=== PATIENT | male | born 1985 | race Two or more races ===

== ENCOUNTER → 2017-04-03 | Outpatient (CLI) | payer OTHER ==
--- NOTE | 2017-04-04 11:22 | US ---
EXAMINATION TYPE: US abdomen complete DATE OF EXAM: 04/03/2017 COMPARISON: NONE CLINICAL HISTORY: R10.9 Abd Pain. RUQ PAIN EXAM MEASUREMENTS: Liver Length: 17.1 cm Gallbladder Wall: 0.21 cm CBD: 0.46 cm Spleen: 12.8 cm Right Kidney: 10.8 X 4.1 X 4.3 cm Left Kidney: 11.1 X 6.6 X 5.2 cm Pancreas: wnl Liver: wnl Gallbladder: APPEARS WNL ARTIFACT SEEN. Evidence for sonographic Garza's sign: No CBD: wnl Spleen: wnl Right Kidney: wnl Left Kidney: wnl Upper IVC: wnl Abd Aorta: wnl The liver is homogenous. The intrahepatic portion of the IVC and visualized abdominal aorta are with in normal limits. There is no evidence of shadowing mobile cholelithiasis. Common bile duct is unre markable. Pancreas is suboptimally evaluated on images saved as is obscured by overlying bowel gas pe r technologist. The spleen is unremarkable. Kidneys are symmetric and free of hydronephrosis. No r enal lesions are seen. IMPRESSION: No significant finding is seen to account for patient's symptoms.
== END | disposition home or self-care (01) ==
LOC: RADUSWWP 08:55
PROVIDERS: ATTEND Family Medicine
DX: R10.9 Unspecified abdominal pain (principal)
CPT/HCPCS: 76700

== ENCOUNTER 2018-08-20 13:54 | Emergency (ER) | payer OTHER ==
--- NOTE | 2018-08-20 15:22 | XR ---
EXAMINATION TYPE: XR lumbar spine 2 or 3V DATE OF EXAM: 08/20/2018 CLINICAL HISTORY: History of back surgery with low back pain TECHNIQUE: Frontal, lateral, and oblique images of the lumbar spine are obtained. COMPARISON: MRI lumbar spine December 09, 2015 FINDINGS: There are 5 lumbar type vertebral bodies identified. The lumbar spine shows satisfactory alignment without evidence of acute fracture or dislocation. Stable mild disc space narrowing L5-S1 l evel. Vertebral body heights and disk space heights otherwise are within normal limits. The overlying soft tissue appears unremarkable. IMPRESSION: No acute fracture or dislocation is seen in the lumbar spine. No significant change from prior MRI.
--- NOTE | 2018-08-20 16:34 | CT ---
EXAMINATION TYPE: CT lumbar spine wo con DATE OF EXAM: 08/20/2018 COMPARISON: Plain films 08/20/2018, MRI 12/09/2015 HISTORY: Swelling by previous lumbar surgery. CT DLP: 1005.8 mGycm CONTRAST: None TECHNIQUE: CT of the lumbar spine is performed on a spiral scan at 3 mm thick sections. Reconstructed images are performed in the coronal and sagittal planes. FINDINGS: T12-L1: No focal disc herniation or significant disc bulge is evident. No spinal canal stenosis or neural foraminal stenosis is present. L1-L2: No focal disc herniation or significant disc bulge is evident. No spinal canal stenosis or n eural foraminal stenosis is present L2-L3: No focal disc herniation or significant disc bulge is evident. No spinal canal stenosis or n eural foraminal stenosis is present L3-L4: Minimal disc bulging is anterior thecal sac contact. This may be slightly increased from ashkan rison. No spinal canal stenosis or neural foraminal stenosis is present. L4-L5: There is moderate disc bulging greater into the left paracentral region. This has moderate ant erior thecal sac compression. This is an interval change from the comparison. Previous right-sided di sc herniation is not identified. Correlate with the radicular symptoms. Spinal canal narrowing appear s to be present. Ligamentum flavum laxity contributes to the narrowing. L5-S1: Mild disc bulge is present with anterior thecal sac compression. No AP spinal canal stenosis i s present. Mild left and moderate right foraminal narrowing is present. Vertebral alignment appears normal. IMPRESSION: 1. New broad-based left paracentral disc bulging L4-5 with moderate anterior thecal sac compression. This is causing canal narrowing in conjunction with the ligamentum flavum laxity is present. This is a change from the MRI comparison of 12/09/2015. 2. Minimal disc bulging L3-4 may be developing from prior examination.
[2018-08-20] MEDS ORDERED: DEXAMETHASONE SOD PHOSPHATE 10 MG/ML 1 ML VIAL IM STA (17:26)
--- NOTE | 2018-08-20 17:52 | ED ---
General Adult HPI - General Chief complaint: Skin/Abscess/Foreign Body Stated complaint: incision swelling/pain Source: patient, RN notes reviewed, old records reviewed Mode of arrival: ambulatory Limitations: no limitations - History of Present Illness Initial comments: 33-year-old male patient with past medical history of lumbar discectomy presents to ED with back pain. Patient states that the last 2 days he has had new lumbar back pain, which radiates down his right posterior lower extremity. Patient has additionally had some localized paresthesias in the lumbar region. Patient states that when he got out of bed this morning his right leg "gave out on him" and he fell to the side. Patient denies head or neck trauma, and onset back pain or any other injury from fall. Patient afterwards is ambulatory. Patient has additional complaint of some localized swelling at the incision site of lumbar discectomy 3 years prior. Approximately 3 weeks ago he noticed some swelling underneath the incision site, which one week ago became hardened. This area is mildly tender to palpation. Patient denies any discharge or heat from incision site. Patient denies fever chills, IV drug use, loss of bowel or bladder control, saddle anesthesia, new weakness, recent heavy lifting. Patient additionally denies nausea vomiting diarrhea, abdominal pain, chest pain, shortness of breath, changes in vision, headache. Systemic: Pt denies fatigue, myalgia, fever/chills, rash. Pt denies weakness, night sweats, weight loss. Neuro: Pt denies headache, visual disturbances, syncope or pre-syncope. HEENT: Pt denies ocular discharge or irritation, otalgia, rhinorrhea, pharyngitis or notable lymphadenopathy. Cardiopulmonary: Pt denies chest pain, SOB, heart palpitations, dyspnea on exertion. Abdominal/GI: Pt denies abdominal pain, n/v/d. : Pt denies dysuria, burning w/ urination, frequency/urgency. Denies new onset urinary or bowel incontinence. MSK: Pt denies myalgia, loss of strength or function in extremities. - Related Data Home Medications Medication Instructions Recorded Confirmed Ibuprofen [Motrin] 800 mg PO Q8HR PRN 12/08/15 06/06/16 Niacinamide [Niacin] 500 mg PO DAILY 12/09/15 06/06/16 Benazepril HCl [Lotensin] 40 mg PO DAILY 02/08/16 06/06/16 Omeprazole [PriLOSEC] 20 mg PO AC-BRKFST PRN 02/08/16 06/06/16 HYDROcodone/APAP 10-325MG [Seffner 10 mg PO Q6H PRN 06/06/16 06/06/16 10-325] Previous Rx's Medication Instructions Recorded Diazepam [Valium] 5 mg PO TID PRN #90 tab 02/13/16 Allergies Allergy/AdvReac Type Severity Reaction Status Date / Time No Known Allergies Allergy Verified 08/20/18 13:59 Review of Systems ROS Statement: Those systems with pertinent positive or pertinent negative responses have been documented in the HPI. ROS Other: All systems not noted in ROS Statement are negative. Past Medical History Past Medical History: Hypertension Additional Past Medical History / Comment(s): migraines, arthritis History of Any Multi-Drug Resistant Organisms: None Reported Past Surgical History: Back Surgery, Orthopedic Surgery Additional Past Surgical History / Comment(s): laminectomy, NECK 2007 AND 2013, LT KNEE arthroscopy, 02-12-16 revision of lumbar laminectomy. Past Anesthesia/Blood Transfusion Reactions: Previous Problems w/ Anesthesia Additional Past Anesthesia/Blood Transfusion Reaction / Comment(s): post op MIGRAINE Past Psychological History: Anxiety Smoking Status: Current some day smoker Past Alcohol Use History: None Reported Past Drug Use History: None Reported - Past Family History Father Family Medical History: Diabetes Mellitus, Hypertension Additional Family Medical History / Comment(s): BACK PROBLEMS Mother Family Medical History: Diabetes Mellitus, Hypertension General Exam - General Exam Comments Initial Comments: Constitutional: NAD, AOX3, Pt has pleasant affect. HEENT: NC/AT, trachea midline, neck supple, no lymphadenopathy. Posterior pharynx non erythematous, without exudates. External ears appear normal, without discharge. Mucous membranes moist. Eyes PERRLA, EOM intact. There is no scleral icterus. No pallor noted. Cardiopulmonary: RRR, no murmurs, rubs or gallops, no JVD noted. Lungs CTAB in anterior and posterior santana. No peripheral edema. Abdominal exam: Abdomen soft and non-distended. Abdomen non-tender to palpation in all 4 quadrants. Bowel sounds active in LLQ. No hepatosplenomegaly. Neuro: CN II-XII intact. MSK: Midline cervical, thoracic, lumbar spine and paraspinal nontender to palpation, area of edema under incision site approx 2 cm from midline mildly tender to palpation - no erythema, discharge, streaking, fluctuance. Patient lumbar flexion intact. Heel to toe walking intact. Patellar reflexes 2 out of 4, ankle jerk reflex intact. Quadriceps and psoas strength 5 out of 5. Upper and lower extremity sensation intact. Limitations: no limitations Course Vital Signs 08/20/18 08/20/18 08/20/18 13:55 14:24 18:06 Temperature 98.3 F 97.8 F Pulse Rate 97 104 H 99 Respiratory 18 16 18 Rate Blood Pressure 197/102 159/97 168/98 O2 Sat by Pulse 100 99 99 Oximetry Medical Decision Making - Medical Decision Making 33-year-old male patient new onset back pain. Physical exam or do not reveal neurologic deficits, new onset weakness or loss of bowel or bladder control. Area of edema under former incision scar does not appear to be infectious in origin, non-erythematous, non-warm, no fluctuance or discharge. CT of back displayed new broad-based left paracentral disc bulging L4-L5 with moderate anterior thecal sac compression. Contact was made with Dr. Pina orthopedic spine surgeon who performed the patient's previous surgery. Patient is scheduled to see the surgeon tomorrow. Patient administered Decadron shot to decrease inflammation, will defer further treatment to the surgeon tomorrow. Discussed with patient reasons to return to Hospital including new weakness, numbness, saddle anesthesia, loss of bowel or bladder control. Case discussed with Dr. Villeda. Disposition Clinical Impression: Lumbar disc herniation Disposition: HOME SELF-CARE Condition: Good Instructions: Lumbar Radiculopathy (ED) Additional Instructions: Patient to adhere to previously discussed treatment plan and will take medication(s) as directed. Patient to follow up with Dr Ocampo tomorrow and PCP in 1-2 days. Patient to return to ED if symptoms do not improve or new symptoms as previously discussed. Is patient prescribed a controlled substance at d/c from ED?: No Referrals: None,Stated [Primary Care Provider] - 1-2 days Aj Pina, [Doctor of Osteopathic Medicine] - 1-2 days
[2018-08-20 18:07] VITALS: BP 168/98; PULSE 99; RESP 18; TEMP 97.8
== END 2018-08-20 18:06 | disposition home or self-care (01) ==
LOC: EC 13:54
DX: M51.26 Other intervertebral disc displacement, lumbar region (principal); I10 Essential (primary) hypertension; M19.90 Unspecified osteoarthritis, unspecified site; F41.9 Anxiety disorder, unspecified; F17.200 Nicotine dependence, unspecified, uncomplicated; Z98.1 Arthrodesis status; Z98.890 Other specified postprocedural states; Z79.899 Other long term (current) drug therapy
CPT/HCPCS: 72100; 72131; 99284; 96372; J1100

== ENCOUNTER 2018-09-07 00:18 | Emergency (ER) | payer OTHER ==
[2018-09-07 00:25] VITALS: TEMP 97.3
[2018-09-07] MEDS ORDERED: MORPHINE SULFATE 4 MG/ML SYRINGE IVP STA (01:13)
[2018-09-07] MEDS ORDERED: KETOROLAC 30 MG/ML 1 ML VIAL IVP STA (01:13)
[2018-09-07] MEDS ORDERED: ONDANSETRON 4 MG/2 ML VIAL IVP STA (01:13)
[2018-09-07] MEDS ORDERED: DIAZEPAM 5 MG TAB PO STA (01:21)
[2018-09-07] MEDS ORDERED: HYDROmorphone 1 MG/ML 1 ML SYRINGE IVP STA (02:15)
--- NOTE | 2018-09-07 02:52 | ED ---
Back Pain HPI - General Chief Complaint: Back Pain/Injury Stated Complaint: Back Pain Time Seen by Provider: 09/07/18 00:26 Source: patient, EMS Limitations: no limitations - History of Present Illness Initial Comments: 33-year-old male patient presents to the emergency department today for evaluation of increased low back pain. Patient states he does have history of chronic low back pain and has had lumbar fusion in the past. States that over the last 3 days his pain has been worsening. States it is radiating down both legs were worse on the right side. States that the pain is a burning pain that extends from the hip down the right lateral thigh to the feet. He denies any numbness or tingling to the legs. States he did have an episode of urinary incontinence. Denies any bowel incontinence. Denies any saddle anesthesia. He has any fevers or chills. Denies any history of intravenous drug use. Denies any injury to the back. Patient denies any recent rash, shortness breath , chest pain, abdominal pain, nausea, vomiting, diarrhea, constipation, dizziness, weakness, hematuria, dysuria, urinary urgency, urinary frequency, headache, visual changes, or any other complaints. - Related Data Home Medications Medication Instructions Recorded Confirmed Ibuprofen [Motrin] 800 mg PO Q8HR PRN 12/08/15 06/06/16 Niacinamide [Niacin] 500 mg PO DAILY 12/09/15 06/06/16 Benazepril HCl [Lotensin] 40 mg PO DAILY 02/08/16 06/06/16 Omeprazole [PriLOSEC] 20 mg PO AC-BRKFST PRN 02/08/16 06/06/16 HYDROcodone/APAP 10-325MG [Assonet 10 mg PO Q6H PRN 06/06/16 06/06/16 10-325] Previous Rx's Medication Instructions Recorded Diazepam [Valium] 5 mg PO TID PRN #90 tab 02/13/16 Cyclobenzaprine [Flexeril] 10 mg PO TID #15 tab 09/07/18 Hydrocodone/Acetaminophen [Assonet 1 tab PO Q6HR PRN #12 tab 09/07/18 5-325] Ibuprofen [Motrin] 600 mg PO Q8HR PRN #30 tab 09/07/18 Allergies Allergy/AdvReac Type Severity Reaction Status Date / Time No Known Allergies Allergy Verified 08/20/18 13:59 Review of Systems ROS Statement: Those systems with pertinent positive or pertinent negative responses have been documented in the HPI. ROS Other: All systems not noted in ROS Statement are negative. Past Medical History Past Medical History: Hypertension Additional Past Medical History / Comment(s): migraines, arthritis History of Any Multi-Drug Resistant Organisms: None Reported Past Surgical History: Back Surgery, Orthopedic Surgery Additional Past Surgical History / Comment(s): laminectomy, NECK 2007 AND 2013, LT KNEE arthroscopy, -16 revision of lumbar laminectomy. Past Anesthesia/Blood Transfusion Reactions: Previous Problems w/ Anesthesia Additional Past Anesthesia/Blood Transfusion Reaction / Comment(s): post op MIGRAINE Past Psychological History: Anxiety Smoking Status: Current some day smoker Past Alcohol Use History: None Reported Past Drug Use History: None Reported - Past Family History Father Family Medical History: Diabetes Mellitus, Hypertension Additional Family Medical History / Comment(s): BACK PROBLEMS Mother Family Medical History: Diabetes Mellitus, Hypertension General Exam Limitations: no limitations General appearance: alert, in no apparent distress, other (This is a well- developed, well-nourished adult male patient in no acute distress. Vital signs upon presentation are temperature 97.3F, pulse 100, respirations 16, blood pressure 182/106, pulse ox 99% on room air.) Eye exam: Present: normal appearance, PERRL, EOMI. Absent: scleral icterus, conjunctival injection, periorbital swelling ENT exam: Present: normal exam, normal oropharynx, mucous membranes moist Respiratory exam: Present: normal lung sounds bilaterally. Absent: respiratory distress, wheezes, rales, rhonchi, stridor Cardiovascular Exam: Present: regular rate, normal rhythm, normal heart sounds. Absent: systolic murmur, diastolic murmur, rubs, gallop, clicks GI/Abdominal exam: Present: soft, normal bowel sounds. Absent: distended, tenderness, guarding, rebound, rigid Rectal exam: Present: normal inspection, normal rectal tone Extremities exam: Present: normal inspection, full ROM, normal capillary refill , other (Skin to the lower extremities are pink, warm, and dry. Cap refills less than 3 seconds. Post tibial pulses 2+ and equal bilaterally.). Absent: tenderness, pedal edema, joint swelling, calf tenderness Back exam: Present: normal inspection, vertebral tenderness (Mid lumbar vertebral tenderness) Neurological exam: Present: alert, oriented X3, CN II-XII intact Psychiatric exam: Present: normal affect, normal mood Skin exam: Present: warm, dry, intact, normal color. Absent: rash Course Vital Signs 09/07/18 09/07/18 00:22 03:02 Temperature 97.3 F L Pulse Rate 100 71 Respiratory 16 20 Rate Blood Pressure 182/106 139/84 O2 Sat by Pulse 99 97 Oximetry Medical Decision Making - Medical Decision Making 33-year-old male patient presents the emergency department today for complaints of increased low back pain with radiation down his bilateral legs. Physical examination did reveal some tenderness over the lower lumbar spine. Patient had good neurovascular status and good strength to the bilateral lower extremities. Patient was given pain medication here in the emergency department. Patient did report improvement of symptoms. He is able to ambulate. States that the pain is no longer radiating down his legs. He'll be discharged home with medications for pain management. He is instructed to follow-up with his orthopedic supervisory it specialist as soon as possible. States that he will be calling him in the morning. Return parameters were discussed in detail. He verbalizes understanding and agrees with this plan. Disposition Clinical Impression: Acute exacerbation of chronic low back pain, Herniated disc Disposition: HOME SELF-CARE Condition: Good Instructions: Acute Low Back Pain (ED), Chronic Back Pain (ED) Additional Instructions: Apply ice/heat to the low back 20 minutes at a time at least 4 times daily. Take medication as directed. Follow up with your primary care physician or supervisory it specialist for recheck in 1-2 days. Return immediately for any new, worsening, or concerning symptoms. Prescriptions: Cyclobenzaprine [Flexeril] 10 mg PO TID #15 tab Hydrocodone/Acetaminophen [Assonet 5-325] 1 tab PO Q6HR PRN #12 tab PRN Reason: Pain Ibuprofen [Motrin] 600 mg PO Q8HR PRN #30 tab PRN Reason: Pain Is patient prescribed a controlled substance at d/c from ED?: Yes When asked, does pt state using other controlled substances?: No If prescribed controlled substance>3 days was MAPS reviewed?: Prescribed <3 Days If opioid is for acute pain is fill amount 7 days or less?: No If Rx opioid, was Start Talking consent form obtained?: Yes Referrals: Arpit Cruz MD [Primary Care Provider] - 1-2 days Aj Pina DO [Doctor of Osteopathic Medicine] - 1-2 days Time of Disposition: 03:08
[2018-09-07 03:03] VITALS: BP 139/84; PULSE 71; RESP 20
== END 2018-09-07 03:15 | disposition home or self-care (01) ==
LOC: EC 00:18
DX: M51.26 Other intervertebral disc displacement, lumbar region (principal); R32 Unspecified urinary incontinence; I10 Essential (primary) hypertension; F17.200 Nicotine dependence, unspecified, uncomplicated; Z79.899 Other long term (current) drug therapy; Z98.1 Arthrodesis status; Z82.69 Family history of other diseases of the musculoskeletal system and connective tissue
CPT/HCPCS: 99283; 96374; 96375 ×3; J2270; J2405; J1885; J1170

== ENCOUNTER → 2018-09-22 | Outpatient (CLI) | payer OTHER ==
[2018-09-22 20:56] LABS: Blood Urea Nitrogen 23 mg/dL (9-20)
--- NOTE | 2018-09-23 07:24 | MR ---
EXAMINATION TYPE: MR lumbar spine wo/w con DATE OF EXAM: 09/22/2018 COMPARISON: MRI lumbar spine December 09, 2015. CT lumbar spine August 20, 2018. HISTORY: Low back pain, radiculopathy, intervertebral disc displacement, generalized muscle weakness, myofascial strain, status post laminectomy and discectomy L5-S1 level, and restless leg syndrome all per order. Severe pain constant right leg weakness for 3 months with pain into bilateral lower extre mities with history of back surgery 2015 upper patient. TECHNIQUE: Multiplanar, multisequence images of the lumbar spine is performed without and with IV contrast, util izing 10 mL intravenous Gadavist FINDINGS: Sagittal images of the lumbar spine show vertebral body heights and alignment to appear sat isfactory. There is redemonstration of disc desiccation L4-L5 and L5-S1 levels. There is mild disc s pace narrowing L4-L5 level and moderate disc space narrowing L5-S1 level which has progressed from 20 16 MRI. Posterior disc herniations at these levels are redemonstrated on sagittal images. Mild multil evel anterior spurring is seen. Some heterogeneous endplate changes L5-S1 level is now identified. Th e conus medullaris is normal in position ending superior L1 level. No suspicious postcontrast enhance ment is seen. Axial images show the T12-L1 level to appear within normal limits. Axial images at the L1-L2 level show new mild broad disc bulge mildly effacing anterior thecal sac. B ilateral neural foramina are patent. Axial images at L2-L3 and the L3-L4 levels show mild facet degenerative changes bilaterally but spina l canal is preserved and bilateral neural foramina are patent. Axial images at the L4-L5 level show mild to moderate right greater than left facet degenerative dominguez ges bilaterally. There is broad disc bulge with central disc protrusion component effacing anterior t hecal sac on axial image 8. This is more prominent from prior MRI. There is mild to moderate bilatera l anterior inferior neural foraminal narrowing now seen. Axial images at the L5-S1 level show right posterior scar tissue. Right-sided laminectomy defect is s een axial image 1. There is spur disc complex with spinal canal is not effaced. Left-sided neural for joaquim is patent. Right side however shows spur disc complex and scar tissue effacing right lateral re cess axial image 3 encroaching near central right S1 nerve, there is severe right-sided neural forami nal narrowing noted sagittal image 11 due to encroaching scar tissue. IMPRESSION: Laminectomy defect right L5-S1 level redemonstrated. Worsening degenerative change L4-L5 and L5-S1 level noted. Worsening scar tissue causes advanced right-sided neural foraminal narrowing o n current study more prominent versus prior. Effacement of right lateral recess also redemonstrated m ore prominent versus prior. New disc herniation L1-L2 level noted. Further details as discussed above .
== END ==
LOC: RADMRIMAIN 20:27
PROVIDERS: ATTEND Orthopaedic Surgery Orthopaedic Surgery of the Spine
DX: M99.73 Connective tissue and disc stenosis of intervertebral foramina of lumbar region (principal); M51.26 Other intervertebral disc displacement, lumbar region; M47.817 Spondylosis without myelopathy or radiculopathy, lumbosacral region; Z98.890 Other specified postprocedural states
CPT/HCPCS: 82565; 84520; 72158; 36415; A9585

== ENCOUNTER → 2018-10-08 | Outpatient (CLI) | payer OTHER ==
--- NOTE | 2018-10-08 13:46 | XR ---
EXAMINATION TYPE: XR chest 2V DATE OF EXAM: 10/08/2018 COMPARISON: 02/05/2016 HISTORY: Chest pain TECHNIQUE: Frontal and lateral views of the chest are obtained. FINDINGS: There is no focal air space opacity. No evidence for pneumothorax. No pleural effusion. The cardiac silhouette size is within normal limits. The osseous structures are grossly intact. IMPRESSION: 1. No acute cardiopulmonary process.
[2018-10-08 14:18] LABS: Anion Gap 10 mmol/L; Blood Urea Nitrogen 21 mg/dL (9-20); Carbon Dioxide 24 mmol/L (22-30); Chloride 107 mmol/L (98-107); Glucose 118 mg/dL (74-99); Sodium 141 mmol/L (137-145)
[2018-10-08 14:21] LABS: Potassium 4.5 mmol/L (3.5-5.1)
== END | disposition home or self-care (01) ==
LOC: LABPAT 12:25
PROVIDERS: ATTEND Orthopaedic Surgery Orthopaedic Surgery of the Spine
DX: Z01.812 Encounter for preprocedural laboratory examination (principal); Z01.818 Encounter for other preprocedural examination; R07.9 Chest pain, unspecified
CPT/HCPCS: 71046; 80048; 87070; 93005

== ENCOUNTER → 2018-10-15 | Outpatient (CLI) | payer OTHER ==
[2018-10-15 14:38] LABS: Appearance,Urine Clear (Clear); Basophils % (A) 1 %; Bilirubin,Urine Negative (Negative); Blood,Urine Negative (Negative); Color,Urine Yellow; Eosinophils # (A) 0.2 k/uL (0-0.7); Eosinophils % (A) 4 %; Glucose,Urine (UA) Negative (Negative); HCT 41.4 % (39.0-53.0); HGB 13.9 gm/dL (13.0-17.5); Ketones,Urine Negative (Negative); Leukocyte Esterase,Urine Negative (Negative); Lymphocytes # (A) 1.5 k/uL (1.0-4.8); Lymphocytes % (A) 29 %; MCH 28.4 pg (25.0-35.0); MCHC 33.5 g/dL (31.0-37.0); MCV 84.6 fL (80.0-100.0); Mean Platelet Volume 6.2; Monocytes # (A) 0.2 k/uL (0-1.0); Monocytes % (A) 4 %; Neutrophils # (A) 3.2 k/uL (1.3-7.7); Neutrophils % (A) 61 %; Nitrite,Urine Negative (Negative); PH, Urine 5.5 (5.0-8.0); Platelet Count 252 k/uL (150-450); Protein,Urine Negative (Negative); RBC 4.89 m/uL (4.30-5.90); RDW 15.5 % (11.5-15.5); Urobilinogen,Urine <2.0 mg/dL (<2.0); WBC 5.3 k/uL (3.8-10.6)
[2018-10-15 14:46] LABS: INR 0.9 (<1.2); Partial Thromboplastin Time 28.2 sec (22.0-30.0); Prothrombin Time 9.7 sec (9.0-12.0)
== END | disposition home or self-care (01) ==
LOC: LABPAT 14:07
PROVIDERS: ATTEND Orthopaedic Surgery Orthopaedic Surgery of the Spine
DX: Z01.818 Encounter for other preprocedural examination (principal); M48.07 Spinal stenosis, lumbosacral region
CPT/HCPCS: 81003; 85025; 85610; 85730

== ENCOUNTER 2018-10-26 10:11 | Inpatient (IN) | payer OTHER ==
[2018-10-19 18:33] VITALS: BMI 33.0
[~2018-10-26 10:11] MED LIST: BACITRACIN 50,000 UNIT, POLYMYXIN B 500,000 UNIT in SODIUM CHLORIDE 0.9% IRRIGATIO 1,00... IRRIGATION ONE; DEXAMETHASONE SOD PHOSPHATE 10 MG/ML 1 ML VIAL IV ONE; LACTATED RINGERS 1,000 ML IV SCH; LIDOCAINE 1% 20 ML VIAL (10MG/ML) FOR IV START INTRADERMA PRN; ONDANSETRON 4 MG/2 ML VIAL IVP ONE; SCOPOLAMINE 1.5MG/72HR PATCH TRANSDERM ONE; VANCOMYCIN 1,500 MG in SODIUM CHLORIDE 0.9% 250 ML IVPB ONE
[2018-10-26] MEDS ORDERED: VECURONIUM 10 MG VIAL IV ONE (12:26)
[2018-10-26] MEDS ORDERED: GLYCOPYRROLATE 0.2 MG/ML 2 ML VIAL ONE (12:26)
[2018-10-26] MEDS ORDERED: LACTATED RINGERS 1,000 ML BAG IV ONE (12:26)
[2018-10-26] MEDS ORDERED: PROPOFOL 10 MG/ML 20 ML VIAL IV ONE (12:26)
[2018-10-26] MEDS ORDERED: fentaNYL (PF) 50 MCG/ML 2 ML AMP ONE (12:26)
[2018-10-26] MEDS ORDERED: HEPARIN SODIUM,PORCINE 10,000 UNIT/ML 1 ML VIAL ONE (12:26)
[2018-10-26] MEDS ORDERED: NEOSTIGMINE 1 MG/ML 10 ML VIAL ONE (12:26)
[2018-10-26] MEDS ORDERED: LIDOCAINE 1% INJ 10MG/ML (20 ML MDV) ONE (12:26)
[2018-10-26] MEDS ORDERED: MIDAZOLAM 2 MG/2 ML VIAL ONE (12:26)
[2018-10-26] MEDS ORDERED: SUCCINYLCHOLINE CHLORIDE 100 MG/5 ML SYR IV ONE (12:26)
[2018-10-26] MEDS ORDERED: HYDROmorphone (PF) 1 MG/ML ONE (12:26)
[2018-10-26] MEDS ORDERED: BUPIVACAINE-EPI 0.5%-1:200,000 10 ML VIAL SQ ONE (13:25)
[2018-10-26] MEDS ORDERED: THROMBIN (BOVINE) 5,000 UNIT VIAL TOPICAL ONE (13:25)
[2018-10-26] MEDS ORDERED: LACTATED RINGERS 1,000 ML IV ONE (14:33)
[2018-10-26] MEDS ORDERED: BENZOCAINE/MENTHOL LOZENG 1 EACH LOZENGE MUCOUS MEM PRN (16:35)
[2018-10-26] MEDS ORDERED: HYDROcodone/APAP 5-325MG 1 EACH TAB PO PRN (16:35)
[2018-10-26] MEDS ORDERED: MAGNESIUM HYDROXIDE 2,400 MG/10 ML CUP PO PRN (16:35)
[2018-10-26] MEDS ORDERED: ONDANSETRON 4 MG/2 ML VIAL IVP PRN (16:35)
[2018-10-26] MEDS ORDERED: HYDROmorphone 0.5 MG/0.5 ML SYRINGE IVP PRN (16:35)
[2018-10-26] MEDS ORDERED: PANTOPRAZOLE 40 MG TABLET PO PRN (16:38)
[2018-10-26] MEDS ORDERED: hydrOXYzine HCL 25 MG TAB PO PRN (16:38)
--- NOTE | 2018-10-26 16:46 | P.OP ---
Date of Procedure: 10/26/18 Preoperative Diagnosis: Recurrent stenosis L5-S1 with recurrent disc herniation Disc herniation L4 5 with stenosis Degenerative disc disease Low back pain Lower extremity radiculopathy with weakness Postoperative Diagnosis: Same Anesthesia: GETA Pathology: none sent Condition: stable Disposition: PACU Description of Procedure: DESCRIPTION OF PROCEDURE(S): BRIEF OPERATIVE NOTE Preoperative Diagnosis: Recurrent stenosis L5-S1 with recurrent disc herniation Disc herniation L4 5 with stenosis Degenerative disc disease Low back pain Lower extremity radiculopathy with weakness Postoperative Diagnosis: Same Procedure: Revision Laminectomy and decompression L5-S1 Laminectomy and decompression L4 5 Minimally invasive Posterior lateral decompression and fusion L4 5 L5-S1 Minimally invasive Transforaminal lumbar interbody fusion for a 360 fusion L4 5 L5-S1 Discectomy for decompression L4 5 L5-S1 Placement of interbody graft L4 5 L5-S1 Local autogenous bone grafting Use of Cell Saver Harvesting of bone marrow aspirate via the pedicle and vertebral body of L4 Use of bone graft extenders Surgeon: Dr. Pina Fine Arts Teacher: Freddy Chavira is present throughout the entire the case persistence during positioning, dissection, exposure, visualization, and all crucial elements of the case as well as closure. Anesthesia: General anesthesia Estimated blood loss: Approximately 500 mL with 217 given back through Cell Saver Complications: None apparent Components implanted: K2M invasive breast pedicle screw system with use of 6 screws 2 rods one [place] cage and 1 [place] expandable cage with 1 osteoamp sponge and 15 mL of DBX bone matrix to supplemental local autogenous bone graft and bone marrow aspirate Disposition: To recovery room in good stable condition. OPERATIVE INDICATIONS The patient has had long-standing issues in their lower back and lower extremities. He had had disc herniations at his lumbar spine in the past and underwent decompression and discectomy at L5-S1 in the past with some relief of his lower extremity symptoms. He initially had some improvement but then had recurrence of his pain in his back and his lower extremities. He had worsening of his disc herniation at L4 5 and had recurrent disc herniation at L5-S1 which correlated with his back and lower extremity symptoms. He is having extreme debilitating pain and was unable to significant activity due to his symptoms. His imaging correlated with his symptoms as well. He is not having any prolonged benefit despite aggressive conservative care. The patient has been through conservative treatment. We discussed various treatment options including surgery, and the patient wishes to proceed with surgery We discussed the risk, patient's alternatives and benefits of surgery including but not limited to, risk of bleeding risk of infection, risk of need for further surgery , risk of decreased, loss of motion, muscle function, malunion nonunion, hardware failure, nerve damage, paralysis, heart attack, blindness and . OPERATIVE SUMMARY After discussing all the risks, patient alternatives and benefits at length, the patient elected to proceed with surgical intervention, signed informed consent, and presented for their procedure. The patient was seen and examined in the preoperative holding area and the surgical site was marked. The patient was given antibiotics and brought to the operating room. The patient was sedated and intubated by anesthesia in standard fashion. The patient was positioned on to the operating room table in a prone position on the appropriate frame which was well-padded and well molded. We were careful to pad any bony prominences and pressure points. We were careful to maintain the patient's cervical spine and good neutral alignment and position throughout. The patient was prepped and draped in a normal standard fashion. An appropriate timeout and keystone protocol performed. We were able to proceed with the surgery. The local wound area was infiltrated with local anesthetic. I was able utilize C-arm guidance to establish appropriate position over the pedicles bilaterally at the appropriate levels at L4 5 and S1. With the appropriate levels confirmed was able to make small stab incisions over the appropriate pedicle sites bilaterally. Utilizing C-arm in his house able to establish a Jamshidi needle over the lateral aspect of the pedicle and advanced the trocar into the pedicle being careful not to breech superiorly inferiorly medially or laterally. Position was confirmed regularly with AP and lateral images on C-arm. I was able to establish the trocar into the pedicle appropriately into the posterior aspect of the vertebral body bilaterally at the appropriate levels. This was done at each of the pedicle positions and each of the vertebrae. At L4 on the right I was able to take bone marrow aspirate through the trocar was established at the pedicle and vertebral body. We aspirated approximately 20 mL of bone marrow aspirate to be used later in the case for autograft. I was able place the guidewire into the trocar and into the vertebral body appropriately under C-arm guidance. Dissection was taken down over the wire to the appropriate starting position for the screw placed. The appropriate length screw was chosen, threaded over the guidewire and screwed appropriately into the pedicle and vertebral body under C-arm guidance in excellent alignment and position with good bony purchase. This is done at each of the screw sites at the appropriate levels at L4 5 and S1 bilaterally. With the screws intact I extended the incision to connect the screw hole sites on the most symptomatic side on the right. I dissected down to establish access over the pars and lamina to the base of the spinous process. I was able to expose the facet joint. The capsule the facet was taken down and showed some facet arthrosis at the joint. He had had a prior laminectomy and decompression with discectomy at L5-S1 on the right in the past and I had to perform more meticulous technique to enable a revision decompression at that level with revision discectomy. I was able to use a combination of curettes and Kerrison rongeurs and a high-speed drill to take down the facet joint and do a facetectomy. Partial laminectomy was also performed. I was able get excellent foraminal decompression and central decompression with undermining across midline to perform a laminectomy centrally and contralaterally. As able get good central decompression. The ligamentum flavum was taken down to further decompress centrally and at bilateral neural foramen. I was able to expose the disc space and visualize the traversing nerve root. This was done in revision form at L5-S1 and then primary form at L4 5. Note was made of some disc protrusion at the level causing further compression of the nerve root. I was able to establish a annulotomy at the appropriate level protecting soft tissue and neural structures. Note was made of some disc desiccation at the disc. I performed a complete discectomy with accommodation of curettes and rasps and scrapers. I was able get good endplate preparation at the disc space. I sized for the appropriate size interbody spacer protecting the soft tissue and neural structures. The wound was copiously irrigated and suctioned dry. There is no evidence of any dural tear or leak. I was able to pack the disc space with local autogenous bone graft as well as a small amount of bone graft which was also placed into the interbody cage itself. At L5 S1 I used a solid [place] cage and at L4 5 with the increased use an expandable [place] cage. Protecting the soft tissue structures and neural structures I was able place the interbody cage in good alignment and good position with good fit and fill at the interbody space. His issues was confirmed with C-arm guidance. Good hemostasis maintained. There is no evidence of any dural tear or leak. The wound was irrigated and suctioned dry. With the hardware intact, intraoperative C-arm imaging was again taken which showed good alignment and position of the hardware at the appropriate levels at L4 5 and L5-S1 We were then able to measure, contour and place the rods and appropriate hardware bilaterally. I was able to place capcrews, tighten them down, and torque them with the torque screwdriver appropriately. With this intact I was able to place the local autogenous bone graft with additional bone graft enhancer as necessary into the posterior lateral gutters over the decorticated transverse processes. The remainder of the bone graft was placed over the facet joint on the contralateral side after taking down the facet joint capsule. With the bone graft intact, a stable construct, and good decompression at the appropriate levels, we were able to proceed with closure. Good hemostasis was maintained. There is no evidence of dural tear or leak. The fascia was closed for a watertight closure. he subcuticular tissue was closed with absorbable suture. The wound was cleaned and dried and dressed with the appropriate dressing. The drapes were broken down. The patient was gently rolled back onto their hospital bed being careful to maintain their cervical spine and good neutral alignment and position. They were woken up by anesthesia, extubated, and brought to the recovery room in good stable condition. The patient will be admitted to the hospital for appropriate postoperative care , medical management and monitoring. We will continue to follow them closely about the postoperative course.
[2018-10-26] MEDS: HYDROmorphone 0.5 MG/0.5 ML SYRINGE IVP PRN ×4 (17:06→17:30)
[2018-10-26] MEDS: fentaNYL (PF) 50 MCG/ML 2 ML AMP IV ONE ×2 (17:45→18:11)
--- NOTE | 2018-10-26 18:29 | FL ---
EXAMINATION TYPE: FL guidance operating room, XR lumbar spine 2 or 3V DATE OF EXAM: 10/26/2018 COMPARISON: NONE HISTORY: 33-year-old male heart replacement FINDINGS: 5 images during L4-S1 transpedicular screw placement. FLUOROSCOPY Fluoroscopy time of 1 minute 29 seconds was used during lumbar spine hardware placement. 5 image/s d ocument/s the procedure. IMPRESSION: Intraoperative fluoroscopy as above.
[2018-10-26] MEDS: HYDROcodone/APAP 5-325MG 1 EACH TAB PO PRN ×2 (19:52→23:55)
[2018-10-26] MEDS: SODIUM CHLORIDE 0.9% 1,000 ML IV SCH (19:56)
[2018-10-26] MEDS: GABAPENTIN 100 MG CAP PO SCH (21:05)
[2018-10-26] MEDS: BACLOFEN 10 MG TAB PO SCH (21:05)
[2018-10-26] MEDS: HYDROmorphone 1 MG/ML 1 ML SYRINGE IVP PRN (21:47)
[2018-10-27] MEDS: HYDROmorphone 1 MG/ML 1 ML SYRINGE IVP PRN ×8 (02:01→23:44)
[2018-10-27] MEDS ORDERED: DIAZEPAM 5 MG TAB PO PRN (03:36)
[2018-10-27] MEDS ORDERED: HYDROcodone/APAP 10-325MG 1 EACH TAB PO PRN (03:37)
[2018-10-27] MEDS: HYDROcodone/APAP 10-325MG 1 EACH TAB PO PRN ×6 (03:51→23:46)
[2018-10-27] MEDS: SODIUM CHLORIDE 0.9% 1,000 ML IV SCH ×3 (05:51→20:38)
[2018-10-27 07:44] LABS: Basophils % (A) 0 %; Eosinophils # (A) 0.1 k/uL (0-0.7); Eosinophils % (A) 1 %; HCT 36.2 % (39.0-53.0); HGB 11.8 gm/dL (13.0-17.5); Lymphocytes # (A) 1.4 k/uL (1.0-4.8); Lymphocytes % (A) 14 %; MCH 27.6 pg (25.0-35.0); MCHC 32.7 g/dL (31.0-37.0); MCV 84.5 fL (80.0-100.0); Mean Platelet Volume 6.1; Monocytes # (A) 0.6 k/uL (0-1.0); Monocytes % (A) 6 %; Neutrophils # (A) 7.5 k/uL (1.3-7.7); Neutrophils % (A) 78 %; Platelet Count 219 k/uL (150-450); RBC 4.28 m/uL (4.30-5.90); RDW 14.7 % (11.5-15.5); WBC 9.7 k/uL (3.8-10.6)
[2018-10-27] MEDS: DULoxetine HCL 30 MG CAPSULE.DR PO SCH (07:46)
[2018-10-27] MEDS: GABAPENTIN 100 MG CAP PO SCH ×3 (07:46→22:26)
[2018-10-27] MEDS: NADOLOL 20 MG TAB PO SCH (07:46)
[2018-10-27] MEDS: BACLOFEN 10 MG TAB PO SCH (07:46)
[2018-10-27] MEDS: SENNOSIDES-DOCUSATE SODIUM 1 EACH TAB PO SCH (07:46)
[2018-10-27 08:16] LABS: Anion Gap 5 mmol/L; Blood Urea Nitrogen 14 mg/dL (9-20); Calcium 8.6 mg/dL (8.4-10.2); Carbon Dioxide 29 mmol/L (22-30); Chloride 104 mmol/L (98-107); Glucose 100 mg/dL (74-99); Potassium 3.9 mmol/L (3.5-5.1); Sodium 138 mmol/L (137-145)
--- NOTE | 2018-10-27 08:40 | P.PN ---
Progress Note - Text Progress Note Date: 10/27/18 Orthopedic Spine Patient is a pleasant 33-year-old male who is seen and examined at the bedside following posterior lateral decompression and fusion performed yesterday. Patient states he is having significant pain at his lumbar spine postsurgically. He has been able to transfer to a bedside chair beside significant difficulty due to his pain. He does not feel his pain is been adequately controlled. He states he's having significant spasms of the lumbar spine. He is not currently experiencing any significant lower extremity radiculopathy or weakness bilaterally. He has no complaints in regards to his legs. He has not been able to mobilize to the bathroom. His Huerta catheter remains intact. Currently does not complain of nausea, vomiting, fever, or chills. Patient is eating without difficulty. Physical Exam Lumbar Fusion: Status post surgical day number 1 Patient is awake, alert, and oriented 3 Vital signs stable Good chest excursion with deep inspiration and expiration Abdomen soft nontender Dorsiflexion, plantarflexion, and extensor hallucis longus positive sustained bilaterally No signs or symptoms of DVT; no calf pain; pneumatic cuffs not currently intact bilateral lower extremities Dressing over the lumbar spine intact with some blood on the dressing; no erythema, purulence, or signs of infection Some pain with palpation around the surgical sites Neurovascularly intact bilaterally lower extremities Assessment: L4-5 and L5-S1 minimally invasive posterior lateral decompression and fusion with transforaminal lumbar interbody fusion L5-S1 revision laminectomy and decompression Significant low back pain and lumbar spasm History of heart disease History of hypertension Plan: 1. Ambulate as tolerated; work with Physical Therapy to increase mobilization 2. Continue pain control with IV and oral medications; medications have been adjusted and patient may continue to receive Alpine 10 mg #25 mg 1-2 tabs every 4 hours as needed for pain, Dilaudid IV 1 mg IV P every 3 hours as needed for pain, and Valium 5 mg 1 tab 3 times a day for muscle spasms 3. Dressing to remain intact with Telfa and Tegaderm; dressing may be removed today and changed with nonstick Telfa and Tegaderm reapplied 4. Medical management can continue to manage patient for patient's other medical issues 5. Discontinue Huerta catheter when patient is able to increase mobilization 6. We will continue to follow the patient closely 7. Patient can follow-up with Freddy Howard PA-C or Dr. Sawyer Pina at [facility] in 2-3 weeks following discharge
[2018-10-27] MEDS: DIAZEPAM 5 MG TAB PO PRN ×2 (09:11→17:25)
[2018-10-27] MEDS ORDERED: HYDROmorphone 0.5 MG/0.5 ML SYRINGE IVP PRN (16:24)
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
[2018-10-28] MEDS: DIAZEPAM 5 MG TAB PO PRN ×3 (01:00→18:00)
[2018-10-28] MEDS: HYDROmorphone 1 MG/ML 1 ML SYRINGE IVP PRN ×5 (03:15→20:19)
[2018-10-28] MEDS: HYDROcodone/APAP 10-325MG 1 EACH TAB PO PRN ×5 (04:36→22:21)
[2018-10-28] MEDS: DULoxetine HCL 30 MG CAPSULE.DR PO SCH (08:14)
[2018-10-28] MEDS: NADOLOL 20 MG TAB PO SCH (08:14)
[2018-10-28] MEDS: SENNOSIDES-DOCUSATE SODIUM 1 EACH TAB PO SCH (08:14)
[2018-10-28] MEDS: GABAPENTIN 100 MG CAP PO SCH ×3 (08:14→22:20)
--- NOTE | 2018-10-28 10:11 | P.PN ---
<Freddy Howard - Last Filed: 10/28/18 10:06> Progress Note - Text Progress Note Date: 10/28/18 Orthopedic Spine: Patient is a pleasant 33-year-old male who is seen and examined at the bedside following posterior lateral decompression and fusion performed Friday. Patient states he is continuing to experience significant pain at his lumbar spine postsurgically but does feel his symptoms haven't had some improvement as compared to yesterday. He has been able to transfer to a bedside chair and states he spent most of the day sitting in a chair yesterday. His pain has been better controlled but continues to be significant. He continues to experience some spasms of the lumbar spine. He is not currently experiencing any significant lower extremity radiculopathy or weakness bilaterally. He has no complaints in regards to his legs. He has been able to mobilize to the bathroom and the Huerta catheter has been discontinued. Currently does not complain of nausea, vomiting, fever, or chills. Patient is eating without difficulty. He has been using his incentive spirometer. Physical Exam Lumbar Fusion: Status post surgical day number 2 Patient is awake, alert, and oriented 3 Vital signs stable Good chest excursion with deep inspiration and expiration Abdomen soft nontender Dorsiflexion, plantarflexion, and extensor hallucis longus positive sustained bilaterally No signs or symptoms of DVT; no calf pain; pneumatic cuffs not currently intact bilateral lower extremities Dressing over the lumbar spine is removed during physical examination Examination of the incision sites show no active drainage, no erythema, no bruising, no purulence, and no sign of infection Some pain with palpation around the surgical sites Neurovascularly intact bilaterally lower extremities Huerta catheter has been discontinued Assessment: L4-5 and L5-S1 minimally invasive posterior lateral decompression and fusion with transforaminal lumbar interbody fusion L5-S1 revision laminectomy and decompression Significant low back pain and lumbar spasm History of heart disease History of hypertension Plan: 1. Ambulate as tolerated; work with Physical Therapy to increase mobilization 2. Continue pain control with IV and oral medications as previously prescribed including [place] 10 mg #25 mg 1-2 tabs every 4 hours as needed for pain, Dilaudid IV 1 mg IV P every 3 hours as needed for pain, and Valium 5 mg 1 tab 3 times a day for muscle spasms 3. Dressing has been removed during physical examination; dressing may be reapplied when patient transfers to a bedside chair with nonstick Telfa and Tegaderm 4. Medical management can continue to manage patient for patient's other medical diagnoses 5. We will continue to follow the patient closely; if patient is able to continue to have improvement of his pain and he is able to wean off of IV pain medication, we will plan for discharge home in the next 1-2 days 6. Patient can follow-up with Freddy Howard PA-C or Dr. Sawyer Pina at [facility] in 2-3 weeks following discharge <Aj Pina - Last Filed: 10/28/18 15:10> Progress Note - Text The patient is seen and examined today at bedside. I agree with the above. I discussed case with Freddy Lam as well. He has been out of bed and he has improved in his pain control. He is voiding freely. He thinks he may be old go home tomorrow or the next day as well as his pain is adequately controlled. His neurovascular status is intact. We will continue to follow them closely.
[2018-10-28] MEDS: SODIUM CHLORIDE 0.9% 1,000 ML IV SCH ×2 (10:29→11:40)
--- NOTE | 2018-10-28 11:21 | P.PN ---
Subjective this is a pleasant 33 yo M with pmh of GERD, hypertension , osteoarthritis, , migrain . pt has history of chronic low back pain, status post spinal fusion . pt has recent visit to emergency room for acute on chronic low dilcia k pain radiating down his legs that was relieved with pain medication.he was diagnosed with recurrent L4-5 stenosis secondary to disc herniation. he is status post posterior lateral decompression and fusion. today is post op #1. pt has significant pain in the lower back at surgery side. has solomon catheter is in place . pt was asking for more pain medication which was provided.pt denies weakness in the lower extremity. solomon catheter is in place already. pt denies chest pain , no dyspnea , no abdominal pain or nausea or vomiting. vitals are stable . labs reviewed and were unremarkable . his pain and vallium medication were increased today . he is on normal saline at 75 ml/hr. he is on bowel regimen. 10/28/2018 Patient was lying in bed in mild distress due to pain, his pain looks better controlled than yesterday however he still have some pain and needing pain medication. No weakness in his lower extremity. No chest pain, dyspnea or abdominal pain. No nausea vomiting. Solomon catheter still in place. Labs reviewed from yesterday which were unremarkable CBC and BMP except for mildly anemic at 11.8 hemoglobin. I agree with physical therapy evaluation as per primary team Objective - Vital Signs Vital signs: Vital Signs Temp 98.2 F 10/28/18 05:00 Pulse 90 10/28/18 05:00 Resp 16 10/28/18 05:00 BP 126/76 10/28/18 05:00 Pulse Ox 100 10/28/18 05:00 Intake & Output 10/27/18 10/28/18 10/28/18 18:59 06:59 18:59 Intake Total 330 1610 Output Total 900 1350 Balance -570 260 Weight 107.501 kg Intake: Intake, IV Titration 330 300 Amount Sodium Chloride 0.9% 1, 280 300 000 ml @ 75 mls/hr IV . [id number] [facility] Rx#:[id number] ceFAZolin 3 gm In Sodium 50 Chloride 0.9% 50 ml @ 100 mls/hr IVPB Q8HR [facility] Rx# :[id number] Oral 1310 Output: Urine 900 1350 Uretheral (Solomon) 900 Other: Voiding Method Indwelling Catheter Toilet Toilet Urinal Urinal # Voids 2 - Exam GENERAL: The patient is alert and oriented x3, not in any acute distress. Well developed, well nourished. HEENT: Pupils are round and equally reacting to light. EOMI. No scleral icterus. No conjunctival pallor. Normocephalic, atraumatic. No pharyngeal erythema. No thyromegaly. CARDIOVASCULAR: S1 and S2 present. No murmurs, rubs, or gallops. PULMONARY: Chest is clear to auscultation, no wheezing or crackles. ABDOMEN: Soft, nontender, nondistended, normoactive bowel sounds. No palpable organomegaly. MUSCULOSKELETAL: No joint swelling or deformity. EXTREMITIES: No cyanosis, clubbing, or pedal edema. lower back wound is with dressing, and it is detailed exam is deferred to orthopedic team NEUROLOGICAL: Gross neurological examination did not reveal any focal deficits. SKIN: No rashes. - Labs CBC & Chem 7: 10/27/18 07:03 10/27/18 07:03 Assessment and Plan Assessment: recurrent L4-5 stenosis secondary to disc herniation. s/p posterior lateral decompression and fusion. history of hypertension BP is controlled with medication history of GERD history of osteoarthritis history of migraine Plan: this is a pleasant 33 m who presents with L4-5 stenosis , s/p decompression and fusion surgery. pt pain looks uncontrolled well , however his pain medication and valium were just increased. pain management as per primary team. r. Labs and medication were reviewed.. Continue same treatment. Continue with symptomatic treatment. Resume home medication. Monitor lytes and vitals. DVT and GI prophylaxis. Further recommendations of the clinical course of the patient DVT prophylaxis: as per primary team given h/o recent back surgery GI Prophylaxis: Protonix physical therapy evaluation and treatment prognosis is guarded thank you for cosulting us, please feel free to contact us for any further questioning or clarification
[2018-10-29] MEDS: HYDROmorphone 1 MG/ML 1 ML SYRINGE IVP PRN ×3 (00:03→09:18)
[2018-10-29] MEDS: HYDROcodone/APAP 10-325MG 1 EACH TAB PO PRN ×4 (02:15→15:15)
[2018-10-29] MEDS: DIAZEPAM 5 MG TAB PO PRN ×2 (02:16→08:57)
[2018-10-29 06:46] VITALS: RESP 16
[2018-10-29] MEDS: SENNOSIDES-DOCUSATE SODIUM 1 EACH TAB PO SCH (08:54)
[2018-10-29] MEDS: GABAPENTIN 100 MG CAP PO SCH (08:54)
[2018-10-29] MEDS: NADOLOL 20 MG TAB PO SCH (08:54)
[2018-10-29] MEDS: DULoxetine HCL 30 MG CAPSULE.DR PO SCH (08:54)
[2018-10-29] MEDS: SODIUM CHLORIDE 0.9% 1,000 ML IV SCH (08:58)
--- NOTE | 2018-10-29 10:32 | P.DS ---
Providers Date of admission: 10/26/18 10:11 Attending physician: Aj Pina Consults: 10/26/18 16:35 Consult Physician Routine Consulting Provider: Honorio Perez Reason/Comments: Medical management Do you want consulting provider notified?: Yes Primary care physician: Stated None Hospital Course: The patient presented on the day of admission as per their operative note. He underwent minimally invasive decompression and fusion at L4 5 and L5-S1 for his spinal stenosis with recurrent herniation degenerative disc disease and lower extremity radiculopathy. He had a great deal of pain on his first postoperative day but he has been making good improvement over the next days. Today he feels like to turn the corner and is moving around significant way better. He is requiring very little IV pain medication and has been converting or over to oral medications adequately. He feels his lower extremities have made good improvement with his surgery Physical Exam The incision site is clean dry and intact. There is no erythema no drainage. There is no purulence no evidence of infection. His back is clear Abdomen soft and nontender. Chest has good excursion with deep inspiration and expiration. The patient has active and passive range of motion intact at the upper and lower extremities. There is no acute change in neurologic status. He has sustained dorsal to plantar flexion and EHL intact Hospital Course Postoperative day #3 status post minimally invasive decompression and fusion at L4 5 and L5-S1 for recurrence stenosis with stenosis L4 5 L5-S1 degenerative disc disease low back pain and lower extremity radiculopathy . The patient has been making good progress postoperatively. They have completed the prophylactic antibiotics without any signs or symptoms of infection. The patient has been able to advance their diet, and is tolerating diet adequately. The pain was initially controlled with IV medications and is now controlled appropriately with oral medications. The patient has been able to increase their mobilization. He feels he'll be okay for discharge home if he can actively manage his stairs with physical therapy as he does have some stairs at home. The patient has progressed appropriately. I think they are in good stable condition for discharge today if he is okay doing stairs and with his medications of oral pain medication transitioning from the IV.. They will be sent home with appropriate prescriptions. I answered their questions to the best of my ability in a language that they can understand and they are agreeable with the plan. They will follow up as directed in approximately 2 weeks or sooner if he is having any problems. Patient Condition at Discharge: Fair Plan - Discharge Summary Discharge Rx Participant: Yes New Discharge Prescriptions: New Cyclobenzaprine [Flexeril] 10 mg PO TID PRN #90 tab PRN Reason: Spasms Diazepam [Valium] 5 mg PO TID PRN 14 Days #21 tab PRN Reason: Spasms HYDROcodone/APAP 10-325MG [[place] 10-325] 1 tab PO Q4HR PRN 7 Days #42 tab PRN Reason: Pain No Action Omeprazole [PriLOSEC] 20 mg PO AC-BRKFST PRN PRN Reason: Heartburn HYDROcodone/APAP 10-325MG [[place] 10-325] 1 tab PO BID Ibuprofen [Motrin] 600 mg PO Q8HR PRN #30 tab PRN Reason: Pain Gabapentin [Neurontin] 100 mg PO TID Baclofen [Lioresal] 10 mg PO TID Nadolol [Corgard] 20 mg PO DAILY DULoxetine HCL [Cymbalta] 30 mg PO DAILY hydrOXYzine HCL [Atarax] 50 mg PO QID PRN PRN Reason: Anxiety Discharge Medication List Omeprazole [PriLOSEC] 20 mg PO AC-BRKFST PRN 02/08/16 [History] HYDROcodone/APAP 10-325MG [[place] 10-325] 1 tab PO BID 06/06/16 [History] Ibuprofen [Motrin] 600 mg PO Q8HR PRN #30 tab 09/07/18 [Rx] Baclofen [Lioresal] 10 mg PO TID 10/19/18 [History] Gabapentin [Neurontin] 100 mg PO TID 10/19/18 [History] DULoxetine HCL [Cymbalta] 30 mg PO DAILY 10/21/18 [History] Nadolol [Corgard] 20 mg PO DAILY 10/21/18 [History] hydrOXYzine HCL [Atarax] 50 mg PO QID PRN 10/21/18 [History] Cyclobenzaprine [Flexeril] 10 mg PO TID PRN #90 tab 10/29/18 [Rx] Diazepam [Valium] 5 mg PO TID PRN 14 Days #21 tab 10/29/18 [Rx] HYDROcodone/APAP 10-325MG [[place] 10-325] 1 tab PO Q4HR PRN 7 Days #42 tab [Rx] Follow up Appointment(s)/Referral(s): Freddy Howard, LAMIN [PHYSICIAN DATABASE SPECIALIST] - 2 Weeks (Patient may follow-up with Freddy Howard PA-C or Dr. Sawyer Pina at [facility] in 2-3 weeks following discharge. ) Activity/Diet/Wound Care/Special Instructions: 1. Patient may shower with Tegaderm dressing intact. 2. Patient may remove Tegaderm dressing on Friday and shower without a dressing at that time. 3. Patient should keep Steri-Strips intact and allow them to fall off naturally. 4. Patient should refrain from driving until at least after their first follow- up appointment in the office. 5. Patient should avoid excessive bending, twisting, and lifting; no lifting greater than 10 pounds 6. Take medications as prescribed 7. Do not soak in tub Discharge Disposition: HOME SELF-CARE
[2018-10-29 12:38] VITALS: BP 117/76; PULSE 81; TEMP 98.2
--- NOTE | 2018-10-29 18:37 | P.PN ---
Subjective Progress Note Date: 10/29/18 Progress note being dictated for Dr. Santo. Interval history: this is a pleasant 33 yo M with pmh of GERD, hypertension , osteoarthritis, , migrain . pt has history of chronic low back pain, status post spinal fusion . pt has recent visit to emergency room for acute on chronic low dilcia k pain radiating down his legs that was relieved with pain medication.he was diagnosed with recurrent L4-5 stenosis secondary to disc herniation. he is status post posterior lateral decompression and fusion. today is post op #1. pt has significant pain in the lower back at surgery side. has solomon catheter is in place . pt was asking for more pain medication which was provided.pt denies weakness in the lower extremity. solomon catheter is in place already. pt denies chest pain , no dyspnea , no abdominal pain or nausea or vomiting. vitals are stable . labs reviewed and were unremarkable . his pain and vallium medication were increased today . he is on normal saline at 75 ml/ hr. he is on bowel regimen. 10/28/2018 Patient was lying in bed in mild distress due to pain, his pain looks better controlled than yesterday however he still have some pain and needing pain medication. No weakness in his lower extremity. No chest pain, dyspnea or abdominal pain. No nausea vomiting. Solomon catheter still in place. Labs reviewed from yesterday which were unremarkable CBC and BMP except for mildly anemic at 11.8 hemoglobin. I agree with physical therapy evaluation as per primary team. 10/29/2018 ambulating, tolerating exertion well. PT recommending walker at discharge. Pain better controlled now with oral medications. Diet intake improving with no nausea vomiting. Passing flatus. Denies lightheadedness dizziness or focal deficits. Denies chest pain, palpitations or increasing shortness of breath. Afebrile. Objective - Vital Signs Vital signs: Vital Signs Temp 98.2 F 10/29/18 12:38 Pulse 81 10/29/18 12:38 Resp 16 10/29/18 12:38 BP 117/76 10/29/18 12:38 Pulse Ox 99 10/29/18 12:38 Intake & Output 10/28/18 10/29/18 10/29/18 18:59 06:59 18:59 Intake Total 825 Output Total 500 1400 Balance -500 -575 Intake: Intake, IV Titration 225 Amount Sodium Chloride 0.9% 1, 225 000 ml @ 75 mls/hr IV . [id number] [facility] Rx#:[id number] Oral 600 Output: Urine 500 1400 Other: Voiding Method Toilet Toilet Toilet Urinal Urinal Urinal # Voids 3 - Exam GENERAL: The patient is alert and oriented x3, no acute distress. Well developed , well nourished. HEENT: Pupils are round and equally reacting to light. EOMI. No scleral icterus. No conjunctival pallor. Normocephalic, atraumatic. Oral mucosa moist CARDIOVASCULAR: S1 and S2 present. No murmurs, rubs, or gallops. PULMONARY: Chest is clear to auscultation, no wheezing or crackles. ABDOMEN: Soft, nontender, nondistended, normoactive bowel sounds. No palpable organomegaly. MUSCULOSKELETAL: No joint swelling or deformity. EXTREMITIES: No cyanosis, clubbing, or pedal edema. Back dressing -detailed exam deferred to orthopedic surgery NEUROLOGICAL: Gross neurological examination did not reveal any focal deficits. SKIN: No rashes. - Labs CBC & Chem 7: 10/27/18 07:03 10/27/18 07:03 Assessment and Plan Assessment: recurrent L4-5 stenosis secondary to disc herniation. s/p posterior lateral decompression and fusion. hypertension GERD osteoarthritis Plan: Continue on current medication regime ,monitoring and symptomatic treatment. Patient is being discharged today as per orthopedic surgery. Pain management as per primary. Patient to follow-up with new PCP, Dr. Ahumada in 1 week, as discussed with patient. Continue with Aggressive pulmonary toileting, using IS as advised at home. Further recommendations to follow. The impression and plan of care has been dictated as directed. : I performed a history and examination of this patient, discussed the same with the dictator. I agree with the dictator's note ,documented as a scribe. Any additional findings or plans will be noted.
== END 2018-10-29 15:25 | disposition home or self-care (01) | DRG 455 ==
LOC: 2ORMAIN 10:11 → 3NMEDONC 16:48
PROVIDERS: ADMIT Orthopaedic Surgery Orthopaedic Surgery of the Spine; ATTEND Orthopaedic Surgery Orthopaedic Surgery of the Spine
PROC: 0SG0071 Fusion of Lumbar Vertebral Joint with Autologous Tissue Substitute, Posterior Approach, Posterior Column, Open Approach (ICD-10-PCS; 2018-10-26)
PROC: 0SG30AJ Fusion of Lumbosacral Joint with Interbody Fusion Device, Posterior Approach, Anterior Column, Open Approach (ICD-10-PCS; 2018-10-26)
PROC: 0SG3071 Fusion of Lumbosacral Joint with Autologous Tissue Substitute, Posterior Approach, Posterior Column, Open Approach (ICD-10-PCS; 2018-10-26)
PROC: 0ST20ZZ Resection of Lumbar Vertebral Disc, Open Approach (ICD-10-PCS; 2018-10-26)
PROC: 0ST40ZZ Resection of Lumbosacral Disc, Open Approach (ICD-10-PCS; 2018-10-26)
PROC: 07DS3ZZ Extraction of Vertebral Bone Marrow, Percutaneous Approach (ICD-10-PCS; 2018-10-26)
PROC: 30233N0 Transfusion of Autologous Red Blood Cells into Peripheral Vein, Percutaneous Approach (ICD-10-PCS; 2018-10-26)
PROC: 0SG00AJ Fusion of Lumbar Vertebral Joint with Interbody Fusion Device, Posterior Approach, Anterior Column, Open Approach (ICD-10-PCS; principal; 2018-10-26 12:30)
DX: M48.061 Spinal stenosis, lumbar region without neurogenic claudication (principal); M48.07 Spinal stenosis, lumbosacral region; D64.9 Anemia, unspecified; K21.9 Gastro-esophageal reflux disease without esophagitis; M19.90 Unspecified osteoarthritis, unspecified site; M51.16 Intervertebral disc disorders with radiculopathy, lumbar region; M51.17 Intervertebral disc disorders with radiculopathy, lumbosacral region; G43.909 Migraine, unspecified, not intractable, without status migrainosus; G89.29 Other chronic pain; I11.9 Hypertensive heart disease without heart failure; F41.9 Anxiety disorder, unspecified; F32.9 Major depressive disorder, single episode, unspecified; G25.81 Restless legs syndrome; S39.012A Strain of muscle, fascia and tendon of lower back, initial encounter; E66.9 Obesity, unspecified; Z68.33 Body mass index [BMI] 33.0-33.9, adult; Z79.899 Other long term (current) drug therapy; Z87.891 Personal history of nicotine dependence; Z82.49 Family history of ischemic heart disease and other diseases of the circulatory system; Z83.3 Family history of diabetes mellitus; Z79.891 Long term (current) use of opiate analgesic
CPT/HCPCS: 72100; 80048; 85025; 86850; 86891; 86900; 86901

== ENCOUNTER 2018-12-02 00:17 | Emergency (ER) | payer OTHER ==
[2018-12-02 00:21] VITALS: TEMP 98.6
[2018-12-02] MEDS ORDERED: MORPHINE SULFATE 4 MG/ML SYRINGE IM STA (01:35)
[2018-12-02] MEDS ORDERED: MORPHINE SULFATE 4 MG/ML SYRINGE IV STA ×2 (01:37→07:48)
--- NOTE | 2018-12-02 02:33 | CT ---
EXAM: CT Lumbar Spine With Intravenous Contrast CLINICAL HISTORY: ITS.REASON CT Reason: pain TECHNIQUE: Axial computed tomography images of the lumbar spine with intravenous contrast. DLP is 1467 mGy-cm. This CT exam was performed using one or more of the following dose reduction techniques: automated exposure control, adjustment of the mA and/or kV according to patient size, and/or use of iterative reconstruction technique. COMPARISON: No relevant prior studies available. FINDINGS: Postoperative changes with posterior spinal fusion from L4-S1 and laminectomy changes as well as disc spacers at L4-L5 and L5-S1. No hardware complication identified. There is mild height loss at L1 and T12 which appears chronic, possibly congenital. Height loss is similar to prior chest x-ray from October 08, 2018. No CT evidence for spondylodiscitis. Degenerative changes. Dependent body wall edema. There is artifact from patient's spinal hardware. There are rim-enhancing fluid collections in the posterior paraspinal soft tissues centered in subcutaneous fat. Seen bilaterally, example image 44/202. These may be in region of prior incisions. May represent hematomas or seromas although sterility of collections indeterminate. There may be additional paraspinal fluid collections in deeper paraspinal soft tissues obscured by artifact from spinal hardware. If there is concern for epidural abscess, MRI would be more sensitive/appropriate to evaluate. IMPRESSION: Postoperative changes with nonspecific paraspinal fluid collections, as above. No hardware complication identified. No evidence for spondylodiscitis. If there is concern for epidural abscess, MRI more sensitive/appropriate to evaluate.
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
[2018-12-02 07:46] VITALS: PULSE 70; RESP 18
[2018-12-02 08:02] VITALS: BP 160/110
--- NOTE | 2018-12-03 01:40 | CDI ---
Documentation Clarification OP Dear Mateo HURD MD Please do addendum to ED report for missing HPI and Physical examination. Thank you, Sadaf Rachel Assurance Engineer If you have any questions, please contact Medical Information Specialist at [phone] [facility]
== END 2018-12-02 07:59 | disposition home or self-care (01) ==
LOC: EC 00:17 → SUPCPDRO 00:17 → EC 07:59
DX: M54.16 Radiculopathy, lumbar region (principal); Z98.890 Other specified postprocedural states; Z87.891 Personal history of nicotine dependence; Z79.899 Other long term (current) drug therapy; Z88.8 Allergy status to other drugs, medicaments and biological substances; Z53.8 Procedure and treatment not carried out for other reasons
CPT/HCPCS: 72132; 99284; 96374; 96376; J2270; Q9967

== ENCOUNTER 2019-03-08 00:11 | Observation (INO) | payer OTHER ==
[2019-03-08] MEDS ORDERED: SODIUM CHLORIDE 0.9% 1,000 ML IV ONE ×2 (00:19→01:24)
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
[2019-03-08 00:36] LABS: Glucose,Whole Blood 100 mg/dL (75-99)
[2019-03-08 00:40] LABS: Anisocytosis Slight; Basophils % (A) 1 %; Eosinophils # (A) 0.5 k/uL (0-0.7); Eosinophils % (A) 6 %; HCT 39.1 % (39.0-53.0); HGB 12.7 gm/dL (13.0-17.5); Lymphocytes # (A) 1.6 k/uL (1.0-4.8); Lymphocytes % (A) 21 %; MCH 24.9 pg (25.0-35.0); MCHC 32.6 g/dL (31.0-37.0); MCV 76.6 fL (80.0-100.0); Mean Platelet Volume 6.6; Microcytosis Slight; Monocytes # (A) 0.4 k/uL (0-1.0); Monocytes % (A) 5 %; Neutrophils # (A) 4.9 k/uL (1.3-7.7); Neutrophils % (A) 65 %; Platelet Count 214 k/uL (150-450); Poikilocytosis Slight; RDW 16.4 % (11.5-15.5); WBC 7.6 k/uL (3.8-10.6)
[2019-03-08 00:44] LABS: INR 0.9 (<1.2); Prothrombin Time 9.5 sec (9.0-12.0)
[2019-03-08 00:46] LABS: ALT 27 U/L (21-72); AST 34 U/L (17-59); Acetaminophen <10.0 ug/mL; African American GFR (CKD) 45 (>60 ml/min/1.73 sqM); Albumin 4.6 g/dL (3.5-5.0); Alcohol <10 mg/dL; Alkaline Phosphatase 57 U/L (38-126); Anion Gap 13 mmol/L; Blood Urea Nitrogen 32 mg/dL (9-20); Calcium 9.5 mg/dL (8.4-10.2); Carbon Dioxide 24 mmol/L (22-30); Chloride 104 mmol/L (98-107); Glucose 102 mg/dL (74-99); Potassium 5.3 mmol/L (3.5-5.1); Salicylate <1.0 mg/dL; Sodium 141 mmol/L (137-145); Total Bilirubin 0.7 mg/dL (0.2-1.3); Total Protein 7.9 g/dL (6.3-8.2)
--- NOTE | 2019-03-08 00:56 | CT ---
EXAM: CT Head Without Intravenous Contrast CLINICAL HISTORY: ITS.REASON CT Reason: altered mental status TECHNIQUE: Axial computed tomography images of the head/brain without intravenous contrast. This CT exam was performed using one or more of the following dose reduction techniques: automated exposure control, adjustment of the mA and/or kV according to patient size, and/or use of iterative reconstruction technique. COMPARISON: No relevant prior studies available. FINDINGS: Brain: No hemorrhage. No edema. Ventricles: Unremarkable. No ventriculomegaly. Bones/joints: No acute fracture. Soft tissues: Unremarkable. Sinuses: No fluid levels. Mastoid air cells: Unremarkable as visualized. No mastoid effusion. IMPRESSION: No acute intracranial findings
--- NOTE | 2019-03-08 00:57 | XR ---
EXAM: XR Chest, 1 View CLINICAL HISTORY: ITS.REASON XR Reason: altered mental status TECHNIQUE: Frontal view of the chest. COMPARISON: No relevant prior studies available. FINDINGS: Lungs: Unremarkable. No consolidation. Pleural space: Unremarkable. No pneumothorax. Heart: No pneumomediastinum. Mediastinum: Unremarkable. Bones/joints: No definite fracture. IMPRESSION: No acute findings.
[2019-03-08 01:10] LABS: Appearance,Urine Clear (Clear); Bilirubin,Urine Negative (Negative); Blood,Urine Negative (Negative); Color,Urine Yellow; Glucose,Urine (UA) Negative (Negative); Ketones,Urine Negative (Negative); Leukocyte Esterase,Urine Negative (Negative); Nitrite,Urine Negative (Negative); PH, Urine 5.5 (5.0-8.0); Protein,Urine Trace (Negative); Specific Gravity,Urine 1.027 (1.001-1.035); Urobilinogen,Urine <2.0 mg/dL (<2.0)
[2019-03-08 01:22] LABS: Cocaine Screen,Urine Not Detected (NotDetected); Phencyclidine Screen,Urine Not Detected (NotDetected); Urn Cannabinoid Scrn Not Detected (NotDetected)
[2019-03-08 01:23] LABS: Amphetamine Screen,Urine Not Detected (NotDetected); Barbiturate Screen,Urine Not Detected (NotDetected); Benzodiazepines Screen,Urine Not Detected (NotDetected); Methadone Screen, Urine Not Detected (NotDetected); Opiate Screen,Urine Detected (NotDetected); Oxycodone Screen, Urine Not Detected (NotDetected); Tricyclic Antidepressant,Urine Not Detected (NotDetected)
[2019-03-08] MEDS ORDERED: NALOXONE 0.4 MG/ML 1 ML VIAL IV PRN (02:20)
[2019-03-08] MEDS ORDERED: IBUPROFEN 400 MG TAB PO PRN (02:20)
[2019-03-08] MEDS: SODIUM CHLORIDE 0.9% 1,000 ML IV SCH ×4 (02:43→23:09)
[2019-03-08 04:13] VITALS: BMI 35.5
[2019-03-08] MEDS: HYDROcodone/APAP 5-325MG 1 EACH TAB PO PRN ×5 (04:18→23:09)
[2019-03-08] MEDS: KETOROLAC 30 MG/ML 1 ML VIAL IVP PRN ×2 (07:14→20:33)
[2019-03-08] MEDS: HEPARIN SODIUM,PORCINE 5,000 UNIT/ML 1 ML VIAL SQ SCH ×3 (08:47→23:09)
--- NOTE | 2019-03-08 09:17 | HP ---
HISTORY AND PHYSICAL SUBJECTIVE: 33-year-old male with hypertension, chronic pain, came in with altered mental status, some shaking movements of the entire body and confusion, possible dehydration per family, came to the hospital. He apparently has spells where he stops talking, starts shaking his arms and legs. Could not get him out of the car at the emergency room. Had to come and get him with a gurney. MEDICATIONS: Home medicines include: 1. Neurontin 100 t.i.d. 2. [place] 10 q.i.d. ALLERGIES: NADOLOL. REVIEW OF SYMPTOMS: 14-point review of systems as mentioned above. PAST MEDICAL HISTORY: GERD, hypertension, musculoskeletal disorder, osteoarthritis, severe back pain, history of hypertension and ran out of scripts 2 weeks ago, migraines, back surgery, orthopedic surgery, laminectomy, cervical neck 2014, left knee arthroscopy and lumbar laminectomy. SOCIAL HISTORY: Former smoker. No alcohol. No illicit drugs. FAMILY HISTORY: Father diabetes mellitus and hypertension. Mother hypertension. PHYSICAL EXAM: Vital signs reviewed. Well developed, well nourished, no acute distress. HEAD: Normocephalic, atraumatic. Pupils equal, round, reactive to light. LUNGS: Scattered wheeze. No rhonchi. CARDIOVASCULAR S1-S2. PSYCH: Fair mood and affect. Kind of obtunded, not responding much. NEUROLOGICAL: Cranial nerves appear to be intact. He moves all 4 extremities. No muscle swelling in the joints. No calf tenderness. SKIN no rashes. He appears very anxious at this time. VITAL SIGNS: Blood pressure is 130-150 over 90-105, temp 98.6, pulse 90-101, O2 97 to 98. ASSESSMENT: 1. Altered mental status, possible seizure. 2. EKG was negative for ischemia. 3. Sounds like seizure disorder to me. 4. He also has acute renal insufficiency, a BUN 32, creatinine 2.19, hemoglobin 12.7, white count 7.6 CC an 8 hemoglobin 12.7. 5. Possible prerenal renal failure due to severe depression. Drug screen apparently not detected except for opiates. 6. Admitted for seizure. Neurologic workup for seizure, neurological physician consulted. EEG is ordered. Please see further orders. MMODL / IJN: [id number] /
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
[2019-03-09] MEDS: KETOROLAC 30 MG/ML 1 ML VIAL IVP PRN (03:59)
[2019-03-09] MEDS: SODIUM CHLORIDE 0.9% 1,000 ML IV SCH ×2 (05:11→11:12)
[2019-03-09] MEDS: HYDROcodone/APAP 5-325MG 1 EACH TAB PO PRN ×2 (05:12→11:11)
[2019-03-09] MEDS: LORazepam 2 MG/ML INJ IV PRN ×2 (05:18→05:19)
[2019-03-09] MEDS: HEPARIN SODIUM,PORCINE 5,000 UNIT/ML 1 ML VIAL SQ SCH ×2 (08:00→15:17)
[2019-03-09 12:08] LABS: African American GFR (CKD) >90 (>60 ml/min/1.73 sqM); Anion Gap 6 mmol/L; Blood Urea Nitrogen 19 mg/dL (9-20); Calcium 8.8 mg/dL (8.4-10.2); Carbon Dioxide 28 mmol/L (22-30); Chloride 106 mmol/L (98-107); Glucose 96 mg/dL (74-99); Potassium 4.8 mmol/L (3.5-5.1); Sodium 140 mmol/L (137-145)
[2019-03-09 12:35] LABS: Anisocytosis Slight; HCT 35.7 % (39.0-53.0); HGB 11.5 gm/dL (13.0-17.5); Hypochromasia Slight; MCH 24.9 pg (25.0-35.0); MCHC 32.2 g/dL (31.0-37.0); MCV 77.4 fL (80.0-100.0); Mean Platelet Volume 6.6; Microcytosis Slight; Platelet Count 226 k/uL (150-450); Poikilocytosis Slight; RBC 4.62 m/uL (4.30-5.90); RDW 16.3 % (11.5-15.5); WBC 4.8 k/uL (3.8-10.6)
--- NOTE | 2019-03-09 12:48 | P.PN ---
Subjective Patient is seen in follow for acute kidney injury. Creatinine was 2.18 on admission and is down to 0.74 today. He is currently maintained on normal saline at 1 50 mL an hour. Patient presented with spasms in his lower back which seems to have resolved. Denies chest pain or shortness of breath. Urine output is good. No hematuria or dysuria. Oral intake is good. No vomiting or diarrhea. Vital signs are stable. General: The patient appeared well nourished and normally developed. HEENT: Head exam is unremarkable. Neck is without jugular venous distension. LUNGS: Lungs are clear to auscultation and percussion. Breath sounds decreased. HEART: Rate and Rhythm are regular. First and second heart sounds normal. No murmurs, rubs or gallops. ABDOMEN: Abdominal exam reveals normal bowel sounds. Non-tender and non- distended. No evidence of peritonitis. EXTREMITITES: No clubbing, cyanosis, or edema. Objective - Vital Signs Vital signs: Vital Signs Temp 97.7 F 03/09/19 08:00 Pulse 80 03/09/19 08:00 Resp 16 03/09/19 08:00 BP 162/96 03/09/19 08:00 Pulse Ox 100 03/09/19 08:00 Intake & Output 03/08/19 03/09/19 03/09/19 18:59 06:59 18:59 Intake Total 3200 222 Output Total 700 0 Balance 3200 -700 222 Weight 128.6 kg Intake: Intake, IV Titration 1200 Amount Sodium Chloride 0.9% 1, 1200 000 ml @ 150 mls/hr IV . Q6H40M [facility] Rx#:[id number] Oral 2000 222 Output: Urine 700 Post Void Residual 0 Other: Voiding Method Urinal Urinal # Voids 1 - Labs CBC & Chem 7: 03/09/19 10:47 03/09/19 10:47 Labs: Abnormal Lab Results - Last 24 Hours (Table) 03/09/19 Range/Units 10:47 Hgb 11.5 L (13.0-17.5) gm/dL Hct 35.7 L (39.0-53.0) % MCV 77.4 L (80.0-100.0) fL MCH 24.9 L (25.0-35.0) pg RDW 16.3 H (11.5-15.5) % Assessment and Plan Plan: Assessment: 1. Acute kidney injury mostly prerenal secondary to nonsteroidals. Creatinine was 2.18 on admission and is down to 0.74 today. 2. Mild hyperkalemia secondary to acute kidney injury and nonsteroidals. Resolved. 3. Low back pain/spasms. Better. Plan: I will decrease rate of normal saline to 50 mL an hour. Avoid nonsteroidals.
[2019-03-09] MEDS ORDERED: HYDROcodone/APAP 5-325MG 1 EACH TAB PO STA (15:22)
--- NOTE | 2019-03-09 15:50 | P.PN ---
Subjective Progress Note Date: 03/09/19 Patient feeling better, no more myoclonic jerks. Denies any seizures, denies any focal symptoms. Still with back pain. Patient is getting hydrated. Objective - Vital Signs Vital signs: Vital Signs Temp 97.6 F 03/09/19 12:00 Pulse 74 03/09/19 12:00 Resp 16 03/09/19 12:00 BP 170/91 03/09/19 12:00 Pulse Ox 100 03/09/19 12:00 Intake & Output 03/08/19 03/09/19 03/09/19 18:59 06:59 18:59 Intake Total 3200 444 Output Total 700 600 Balance 3200 -700 -156 Weight 128.6 kg Intake: Intake, IV Titration 1200 Amount Sodium Chloride 0.9% 1, 1200 000 ml @ 50 mls/hr IV . Q20H [facility] Rx#:[id number] Oral 1999 444 Output: Urine 700 600 Post Void Residual 0 Other: Voiding Method Urinal Urinal # Voids 1 - Exam Mental status is normal. Cranial nerves normal. Muscle strength normal except left toe extension which is weak. Reflexes are diminished. No tremors or myoclonus of outstretched hands. 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 * Status post lumbar surgery 10/26/2018, with persistent low back pain, muscle spasms * Acute kidney injury likely related to use of Motrin, now resolved. * Hypertension * Obesity Plan: Patient's renal functions have returned back to normal. Patient was recommended to decrease amount of [place] no more than 2 per day. He can decrease gabapentin to 300 mg 3 times a day. He should follow up with his pain specialist. EEG showed no epileptiform activity. No evidence of seizures. Patient is neurologically clear for discharge.
--- NOTE | 2019-03-09 15:57 | EEG ---
ELECTROENCEPHALOGRAM REPORT ELECTROENCEPHALOGRAM REPORT (EEG): DATE OF SERVICE: 03/09/2019 PREAMBLE: This is a 33-year-old male who has been having some myoclonic jerks/seizures. This study is performed to evaluate for any epileptiform activity. CURRENT MEDICATIONS: Lorazepam, Toradol, Motrin, heparin subcutaneously. EEG FINDINGS: This is a routine 21-channel awake digital EEG recording that was accomplished utilizing 10-20 international system with bipolar and referential montages. The background consists of well developed, well regulated, moderate amplitude activity in 9- 10 Hz alpha. Background is posterior-dominant and is reactive to eye opening and closing. Different stages of sleep were not seen. Photic driving response was not clearly seen. No focal or generalized epileptiform activity was seen. Some sweat artifact was seen. EKG rhythm lead revealed no arrhythmia. IMPRESSION: This is a normal awake EEG. No focal lateralized or epileptiform activity was seen. MMODL / IJN: [id number] /
[2019-03-09 16:48] VITALS: BP 162/93; PULSE 85; RESP 18; TEMP 98.2
--- NOTE | 2019-03-11 18:05 | P.DS ---
Providers Date of admission: 03/08/19 02:23 Expected date of discharge: 03/09/19 Attending physician: Rodrigo Douglass Consults: 03/08/19 02:21 Consult Physician Urgent Consulting Provider: Boby Magaña Consult Reason/Comments: new onset seizure Do you want consulting provider notified?: Yes, Notify in am 03/08/19 15:21 Consult Physician Routine Consulting Provider: Anika Cisneros Consult Reason/Comments: Renal insufficiency. myoclonic jerks Do you want consulting provider notified?: Already Contacted Primary care physician: Stated None Hospital Course: Final DIagnoses: -Myoclonic jerks, probably due to side effect of opiates, Neurontin, on background acute renal failure -Status post lumbar surgery 10/26/2018, with persistent low back pain, muscle spasms -Acute kidney injury likely related to use of Motrin, now resolved with IV fluid hydration. -Hypertension -Obesity,BMI 38.5 Hospital course: This is a 33-year-old gentleman admitted with acute renal fail ure, myoclonic jerks and multiple other medical issues. Evaluated by both nephrology and neurology. Received IV fluid hydration,. Gabapentin and [place] dose decreased. Neuro workup completed. EEG performed, final read per nephrology pending. Significant clinical improvement. Patient has been cleared by nephrology for discharge. Patient will be discharged home in stable condition with guarded prognosis remains cleared by neurology. EXAM: Gen: alert & oriented X3, no acute distress. CV: Regular S1,S2.Lungs: Essentially clear. ABD: Soft, nontender, positive bowel sounds. NEURO: No myocl ernic jerks noted,No focal deficits. The impression and plan of care has been dictated as directed. : I performed a history and examination of this patient, discussed the same with the dictator. I agree with the dictator's note ,documented as a scribe. Any additional findings or plans will be noted. Time taken: 35 minutes Patient Condition at Discharge: Stable Plan - Discharge Summary Discharge Rx Participant: No New Discharge Prescriptions: Continue rOPINIRole HCL [Requip] 2 mg PO HS Polyethylene Glycol 3350 [Miralax] 17 gm PO FR DULoxetine HCL [Cymbalta] 60 mg PO DAILY Nadolol [Corgard] 20 mg PO BID Changed HYDROcodone/APAP 10-325MG [[place] 10-325] 1 tab PO BID #0 Discontinued Baclofen [Lioresal] 10 mg PO TID PRN PRN Reason: Muscle Spasm Ibuprofen [Motrin] 800 mg PO BID PRN PRN Reason: Pain No Action Gabapentin [Neurontin] 100 mg PO TID Discharge Medication List Gabapentin [Neurontin] 100 mg PO TID 10/19/18 [History] DULoxetine HCL [Cymbalta] 60 mg PO DAILY 03/08/19 [History] Nadolol [Corgard] 20 mg PO BID 03/08/19 [History] Polyethylene Glycol 3350 [Miralax] 17 gm PO FR 03/08/19 [History] rOPINIRole HCL [Requip] 2 mg PO HS 03/08/19 [History] HYDROcodone/APAP 10-325MG [[place] 10-325] 1 tab PO BID #0 03/09/19 [Rx] Follow up Appointment(s)/Referral(s): Mercedez Jones MD [STAFF PHYSICIAN] - 2 Weeks (Office will call with follow up appointment. ) Margie Pang MD [STAFF PHYSICIAN] - 03/12/19 9:30 am Latha Barnard MD [STAFF PHYSICIAN] - 03/24/19 10:00 am Ambulatory/Diagnostic Orders: Complete Blood Count w/diff [LAB.AMB] Time Frame: 3 Days, Location: None Selected Patient Instructions/Handouts: Acute Kidney Injury (GEN), Muscle Spasm (ED) Activity/Diet/Wound Care/Special Instructions: Myoclonic jerk diagnosis from neurology. DO NOT TAKE NSAID MEDICATIONS LIKE IBUPROFEN (MOTRIN) OR NAPROXEN (ALEVE). Discharge Disposition: HOME SELF-CARE
== END 2019-03-09 16:55 | disposition home or self-care (01) ==
LOC: EC 00:11 → INTOOBSV 02:23 → 3SCARD 02:23 → UNDODISIN 03-09 16:55
PROVIDERS: ADMIT Family Medicine; ATTEND Family Medicine
DX: G25.3 Myoclonus (principal); N17.9 Acute kidney failure, unspecified; D64.9 Anemia, unspecified; E66.9 Obesity, unspecified; Z68.38 Body mass index [BMI] 38.0-38.9, adult; E87.5 Hyperkalemia; G25.81 Restless legs syndrome; G89.29 Other chronic pain; M54.5 Low back pain; I10 Essential (primary) hypertension; F41.9 Anxiety disorder, unspecified; F32.9 Major depressive disorder, single episode, unspecified; T50.996A Underdosing of other drugs, medicaments and biological substances, initial encounter; M19.90 Unspecified osteoarthritis, unspecified site; T39.395A Adverse effect of other nonsteroidal anti-inflammatory drugs [NSAID], initial encounter; Z79.891 Long term (current) use of opiate analgesic; Z79.1 Long term (current) use of non-steroidal anti-inflammatories (NSAID); Z87.891 Personal history of nicotine dependence; Z98.890 Other specified postprocedural states; Z79.899 Other long term (current) drug therapy; Z88.8 Allergy status to other drugs, medicaments and biological substances; Z98.1 Arthrodesis status; Z83.3 Family history of diabetes mellitus
CPT/HCPCS: 96376 ×2; 96372 ×2; 96374; 96375; 96361; 99285; 36415; 95816; 93005; 80053; 80048; 85025; 85027; 85610; 85730; 81003; 80306; 83520; 71045; 70450; G0378 ×2; G0480 ×2; J2060; J1644 ×2; J1885 ×2; 80320; 80329; 96360